=== PATIENT | female | born 1995 | race Hispanic/Latino ===

== ENCOUNTER 2023-06-08 05:46 | Inpatient (IN) | payer MEDICAID, OTHER ==
[2023-06-08] MEDS ORDERED: hydrALAZINE 20 MG/ML VIAL SLOW IVP PRN ×2 (06:57→17:48)
[2023-06-08] MEDS ORDERED: Ondansetron PF 4 MG/2 ML Vial IVP PRN ×2 (06:57→13:51)
[2023-06-08] MEDS ORDERED: Promethazine HCl 25 MG/ML VIAL IM PRN ×2 (06:57→13:51)
[2023-06-08] MEDS ORDERED: NS w/ Oxytocin 30 units 500 ML IV SCH ×2 (07:00→07:30)
[2023-06-08] MEDS ORDERED: Tranexamic Acid 1,000 MG/10 ML VIAL IVP PRN (07:07)
[2023-06-08] MEDS ORDERED: Diphenoxylate HCl/Atropine Tablet PO PRN (07:07)
[2023-06-08] MEDS ORDERED: Acetaminophen 500 MG TAB PO PRN (07:07)
[2023-06-08] MEDS ORDERED: Carboprost 250 MCG/ML AMP IM PRN (07:07)
[2023-06-08] MEDS ORDERED: Misoprostol 200 MCG TAB PR PRN (07:07)
[2023-06-08] MEDS ORDERED: Methylergonovine 0.2 MG/ML VIAL IM PRN (07:07)
[2023-06-08] MEDS ORDERED: Lidocaine 1% (PF) 30 ML VIAL SC PRN (07:21)
[2023-06-08] MEDS ORDERED: Ibuprofen 800 MG TAB PO PRN (07:21)
[2023-06-08] MEDS: Lactated Ringer's 1,000 ML IV SCH ×3 (07:35→18:04)
[2023-06-08 07:39] LABS: Hemoglobin 12.4 g/dL (12.0-15.5); Mean Corpuscular HGB CONC 34.6 g/dL (32.0-36.0); Mean Corpuscular Hemoglobin 31.5 pg (27.0-33.0); Mean Corpuscular Volume 90.9 fl (81.6-98.3); Mean Platelet Volume 10.9 fl (7.4-10.4); Platelet Count 214 10x3/uL (150-450); RBC Distribution Width 13.1 % (11.5-14.5); Red Blood Cell (RBC) Count 3.94 10x6/uL (3.90-5.03)
[2023-06-08 07:41] VITALS: BMI 31.4
[2023-06-08 08:12] LABS: HBSAg Index 0.21 S/CO (0-0.99); Hep B Surf Ag - L&D Non-Reactive S/CO (NonReactive)
[2023-06-08] MEDS ORDERED: fentaNYL/Ropivacaine Epidural 100 ML ONE (10:50)
[2023-06-08] MEDS ORDERED: diphenhydrAMINE 50 MG/ML VIAL IVP PRN (13:51)
[2023-06-08] MEDS ORDERED: Lactated Ringer's 500 ML IV PRN (13:51)
[2023-06-08] MEDS ORDERED: Naloxone HCl 0.4 mg/ml Vial IVP PRN ×2 (13:51)
[2023-06-08] MEDS ORDERED: ePHEDrine Sulfate 50 MG/10 ML VIAL SLOW IVP PRN (13:51)
[2023-06-08] MEDS ORDERED: Acetaminophen 325 MG TAB PO PRN (13:51)
[2023-06-08] MEDS ORDERED: Moisturizing Cream (Eucerin) 113 GM JAR TOP PRN (13:51)
[2023-06-08] MEDS ORDERED: fentaNYL 2 mcg/Ropivacaine 0.2% Epidural 100 ML CADD EPIDURAL SCH (14:00)
[2023-06-08] MEDS ORDERED: Communication Order-Pharmacy FS SCH (14:00)
[2023-06-08 14:01] LABS: Syphilis Antibody Nonreactive (Nonreactive); Syphilis Antibody Index 0.04 S/CO (<1.00 Non-Reactive)
[2023-06-08] MEDS ORDERED: Bupivacaine PF 0.5% 30 ML VIAL ONE (16:00)
[2023-06-08] MEDS ORDERED: Boostrix 0.5 ML (Tdap) VIAL (>/=7 yrs of age) IM ONE (17:48)
[2023-06-08] MEDS ORDERED: Milk Of Magnesia 30 ML UDCUP PO PRN (17:48)
[2023-06-08] MEDS ORDERED: Bisacodyl 10 MG SUPP PR PRN (17:48)
[2023-06-08] MEDS ORDERED: Ondansetron PF 4 MG/2 ML Vial ONE (19:52)
[2023-06-08] MEDS: Docusate 100 MG CAP PO SCH (21:36)
[2023-06-08] MEDS ORDERED: Ibuprofen 800 MG TAB PO SCH (22:00)
[2023-06-09 04:32] LABS: #Neutrophils 7.8 10x3/uL (1.5-8.4); %Basophils 0.3 % (0.0-2.0); %Eosinophils 0.3 % (0.0-6.0); %Lymphocytes 20.6 % (18.0-47.0); %Monocytes 8.9 % (0.0-10.0); %Neutrophils 69.5 % (40.0-75.0); Hemoglobin 9.8 g/dL (12.0-15.5); Mean Corpuscular HGB CONC 33.6 g/dL (32.0-36.0); Mean Corpuscular Hemoglobin 31.3 pg (27.0-33.0); Mean Corpuscular Volume 93.3 fl (81.6-98.3); Mean Platelet Volume 10.7 fl (7.4-10.4); Platelet Count 178 10x3/uL (150-450); RBC Distribution Width 13.1 % (11.5-14.5); Red Blood Cell (RBC) Count 3.13 10x6/uL (3.90-5.03); White Blood Cell (WBC) Count 11.2 10x3/uL (3.5-10.5)
[2023-06-09] MEDS: Ibuprofen 800 MG TAB PO SCH ×3 (05:57→21:12)
[2023-06-09] MEDS: Docusate 100 MG CAP PO SCH ×2 (08:41→21:12)
[2023-06-09] MEDS: Ferrous Sulfate 325 MG TAB PO SCH ×2 (08:41→17:21)
[2023-06-10 04:28] LABS: Hemoglobin 9.5 g/dL (12.0-15.5)
[2023-06-10] MEDS: Ibuprofen 800 MG TAB PO SCH ×2 (05:51→10:03)
[2023-06-10 07:52] VITALS: BP 124/83; TEMP 97.9
[2023-06-10] MEDS: Ferrous Sulfate 325 MG TAB PO SCH (10:03)
[2023-06-10] MEDS: Docusate 100 MG CAP PO SCH (10:03)
== END 2023-06-10 16:40 | disposition home or self-care (01) | DRG 806 ==
LOC: CSHLD/OP 05:46 → CSHLD 09:39 → CSHPED 20:40
PROVIDERS: ADMIT Obstetrics & Gynecology; ATTEND Obstetrics & Gynecology
PROC: 10E0XZZ Delivery of Products of Conception, External Approach (ICD-10-PCS; principal; 2023-06-08)
PROC: 0KQM0ZZ Repair Perineum Muscle, Open Approach (ICD-10-PCS; 2023-06-08)
DX: O42.02 Full-term premature rupture of membranes, onset of labor within 24 hours of rupture (principal); O71.4 Obstetric high vaginal laceration alone; Z37.0 Single live birth; Z3A.38 38 weeks gestation of pregnancy; O76 Abnormality in fetal heart rate and rhythm complicating labor and delivery; D64.9 Anemia, unspecified; O90.81 Anemia of the puerperium
CPT/HCPCS: 36415; 51702; 76815; 85014; 85018; 85025; 85027; 86780; 86850; 86900; 86901; 87340; 99285; J2590; J7120; S0020